=== PATIENT | female | born 1950 | race Caucasian/White ===

== ENCOUNTER 2016-09-23 16:44 | Emergency (ER) | payer OTHER, BC ==
[~2016-09-23] VITALS: Ht 170.2 cm; Wt 109.4 kg
[2016-09-23 17:23] LABS: HEMATOCRIT 38.9 % (36.0-46.0); MCH 31.3 PG (29.0-34.0); MCHC 33.7 G/DL (30.0-36.0); MCV 93.1 FL (83-99); MEAN PLAT.VOLUME 8.8 uM^3 (9.5-12.4); PLATELET COUNT 273 K/uL (156-360); RBC DIS.WIDTH-CV 12.9 % (11.8-14.6); RED BLOOD COUNT 4.18 M/uL (3.80-5.20); WHITE BLOOD COUNT 7.2 K/uL (4.1-10.2)
[2016-09-23 17:35] LABS: CHLORIDE 105 mEq/L (99-109); POTASSIUM 4.1 mEq/L (3.7-5.4); SODIUM 140 mEq/L (136-147)
[2016-09-23 17:37] LABS: GLUCOSE 103 mg/dL (70-99)
[2016-09-23 17:38] LABS: ANION GAP 9 MEQ/L (2-14)
[2016-09-23 17:39] LABS: TOTAL BILIRUBIN 0.4 mg/dL (0.0-1.0)
[2016-09-23 17:40] LABS: ALKALINE PHOSPHATASE 63 IU/L (3-129)
[2016-09-23 17:41] LABS: GFR ESTIMATE (CALCULATED) > 59 mL/min/
[2016-09-23 17:42] LABS: UREA NITROGEN (BUN) 13 mg/dL (9-23)
[2016-09-23 17:44] LABS: LIPASE 46 U/L (1.0-51.0)
[2016-09-23 18:51] LABS: ADD MIUA? YES; BILIRUBIN NEGATIVE; BLOOD NEGATIVE; COLOR YELLOW ((YELLOW)); GLUCOSE (STRIP) NEGATIVE; KETONES NEGATIVE; LEUKOCYTES SMALL; NITRITE NEGATIVE; PROTEIN (STRIP) NEGATIVE; SPECIFIC GRAVITY 1.011 (1.000-1.030); UROBILINOGEN 0.2 MG/DL (0.2-1.0)
[2016-09-23 18:55] LABS: BACTERIA NONE SEEN /HPF; EPITHELIAL CELLS 2+ /HPF; MUCUS TRACE /LPF; RED BLOOD CELLS 0-5 /HPF (0-5); UCUL ADDED? NO
[2016-09-23] MEDS ORDERED: CIPRO500 MG PO (19:44)
[2016-09-23 20:10] VITALS: BP 154/87
== END 2016-09-23 20:11 | disposition home or self-care (01) ==
LOC: EME 16:44
PROVIDERS: Physician Assistant
DX: N39.0 Urinary tract infection, site not specified (principal)
CPT/HCPCS: 74177; 80053; 81003; 83690; 85027; 99281; 99284; J1885; J7030